=== PATIENT | female | born 1935 | race Caucasian/White ===

== ENCOUNTER 2018-03-15 00:37 | Outpatient (CLI) | payer MEDICARE, SELFPAY ==
--- NOTE | 2018-03-15 10:26 | DI.MAMMO_ITS ---
SYMPTOM/DIAGNOSIS: SCREENING, [facility] MAMMOGRAMS: Mammograms were interpreted according to the usual protocol including computer analysis with CAD system, tomosynthesis and C view imaging. Comparison with prior examinations. No masses or microcalcifications are seen. There is nothing to suggest malignancy. Breast density B. IMPRESSION: Category 1-B. Negative mammogram. Routine screening is recommended. [facility] ASSESSMENT OF FINDINGS: Negative. Category 1. Patient will receive a letter notifying them of these results. BI-RADS category B. There are scattered areas of fibroglandular density.
--- NOTE | 2018-03-15 10:50 | DI.RAD_ITS ---
SYMPTOM/DIAGNOSIS: RT SHOULDER PAIN, M25.511 RIGHT SHOULDER, multiple views; There are moderate hypertrophic changes seen at the acromioclavicular joint. There are mild degenerative changes seen at the glenohumeral joint. There is superior subluxation of the humeral head raising the question of chronic rotator cuff tear. The bones appear intact and mildly osteopenic. The soft tissues are unremarkable. IMPRESSION: Moderate degenerative changes of the right shoulder as described above. Superior subluxation of the humeral head raising the question of chronic rotator cuff tear.
== END 2018-03-15 00:57 ==
PROVIDERS: PCP Family Medicine; Visit Provider Family Medicine
DX: Z12.31 Encounter for screening mammogram for malignant neoplasm of breast (principal); M25.511 Pain in right shoulder; M19.011 Primary osteoarthritis, right shoulder
CPT/HCPCS: 77063; 77067; 73030

== ENCOUNTER 2019-02-15 14:35 | Outpatient (REF) | payer MEDICARE, SELFPAY ==
[2019-02-15 21:14] LABS: Anion Gap 8.5 mmol/L (3-11); BUN 23 mg/dL (7-18); CO2 29.5 mmol/L (21.0-32.0); CREATININE 0.82 mg/dL (0.55-1.02); Calcium 8.8 mg/dL (8.5-10.1); Chloride 104 mmol/L (98-107); Glucose 108 mg/dL (70-100); Potassium 4.3 mmol/L (3.5-5.1); Sodium 142 mmol/L (136-145)
== END 2019-02-15 14:55 ==
LOC: NCHCN 14:35
PROVIDERS: PCP Family Medicine; Visit Provider Family Medicine
DX: I83.90 Asymptomatic varicose veins of unspecified lower extremity (principal)
CPT/HCPCS: 80048

== ENCOUNTER 2019-04-21 00:34 | Outpatient (CLI) | payer MEDICARE, SELFPAY ==
--- NOTE | 2019-04-21 13:10 | DI.MAMMO_ITS ---
EXAM: MG MAMMO SCREENING CLINICAL HISTORY: SCREENING , [facility] Z00.00. TECHNIQUE: Full field digital CC and MLO mammographic images were obtained with 3D tomosynthesis and utilizing computer aided detection (CAD). COMPARISON: 2009 to 2017 FINDINGS: Breast Density - Category B - Scattered areas of fibroglandular density Masses/Architectural Distortion: None seen. Microcalcifications: No suspicious pleomorphic-type calcifications are seen. Skin Thickening/Nipple Retraction: None. Axilla: Unremarkable. IMPRESSION: 1. BI-RADS category 1, negative. No significant interval change with no specific features of maligna ncy noted. 2. Unless there is more urgent need, screening mammography is recommended, as per [place] [employer] guidelines. A negative radiographic report should not delay biopsy if a dominant or clinically suspicious mass is present. Up to ten percent of cancers are not identified on mammography. A negative report may reinforce clinical impression. Adenosis and dense breasts may obscure an underlying neoplasm. False positive reports average 6 to 10%. Patient will receive a letter notifying them of these results.
--- NOTE | 2019-04-21 13:49 | DI.DEXA_ITS ---
EXAM: XR DEXA BONE DENSITY W/WO RODRIGO INDICATION: POSTMENOPAUSAL Z78.0. COMPARISON: DEXA BONE DENSITY WITH RODRIGO from 12/09/2010 FINDINGS: The RODRIGO image shows no evidence of compression fractures. Bone mineral density measurements of the l umbar spine correspond to a total T-score of -0.4. L3 and L4 were excluded from the measurements due to prominent endplate osteophytes and sclerosis. This corresponds with increase in bone density of 4. 5 percent when compared with 2011. The bone mineral density measurements of the left hip correspond to a total T-score of -1.5 and femor al neck T-score of -1.9, in the osteopenic range. This represents a 7.2 percent decrease in bone dens ity when compared with 2011. Left forearm bone mineral density measurements correspond to a T-score o f the distal 3rd of -2.2, in the osteopenic range. This is a 10.5 percent decrease when compared with the previous exam. IMPRESSION: Osteopenia of left forearm and left hip with decreased bone density when compared with 2011. Normal b one mineral density of the lumbar spine with increased density when compared with the previous exam.
== END 2019-04-21 00:54 ==
PROVIDERS: PCP Family Medicine; Visit Provider Family Medicine
DX: M85.88 Other specified disorders of bone density and structure, other site (principal); Z78.0 Asymptomatic menopausal state; Z12.31 Encounter for screening mammogram for malignant neoplasm of breast
CPT/HCPCS: 77063; 77067; 77080

== ENCOUNTER 2019-07-03 09:57 | Emergency (ER) | payer MEDICARE, SELFPAY ==
[2019-07-03 09:59] VITALS: BP 204/85; PULSE 82; TEMP 37.2; O2SAT 99
--- NOTE | 2019-07-03 10:15 | DI.RAD_ITS ---
EXAM: XR CHEST 2V PA LATERAL CLINICAL HISTORY: chest burning TECHNIQUE: COMPARISON: XR shoulder RT complete 2+V from 03/15/2018 FINDINGS: The heart is not enlarged. The lungs are clear, probably mildly hyper expanded. No pleural effusion seen no evidence of pneumothorax. IMPRESSION: No evidence of acute intrapulmonary process.
--- NOTE | 2019-07-03 10:15 | DI.RAD_ITS ---
EXAM: XR KNEE RT 4V AP,LAT,JOE,PAT CLINICAL HISTORY: lateral pain TECHNIQUE: COMPARISON: No exams were available for comparison FINDINGS: Five views were obtained. There may be mild narrowing of all 3 joints of the knee cartilaginous join t space. Moderate periarticular hypertrophic spurring noted. No other abnormality seen. IMPRESSION: No evidence of acute injury.
[2019-07-03 10:24] VITALS: BP 143/89
--- NOTE | 2019-07-03 10:29 | ED.GENADUL_ITS ---
Discharge Plan Disposition Patient Disposition: HOME Condition: Stable Discharge Details Chief Complaint: GenMedical Clinical Impression: Osteoarthritis of right knee Primary Care Provider: Kierra Milton V ED Provider: Barry Carreon Home Meds and New Rx's Prescriptions: No Action furosemide 40 MG tablet 40 mg PO as directed Qty: 45 RF: 11 aspirin [Aspir-81] 81 mg Tablet,Delayed Release (Dr/Ec) RF: 0 Medical Decision Making 83-year-old female presents from home complaining of 2 things. One is right knee pain similar to that she suffered when injuring the knee in 2018. She has right lateral joint line tenderness but no motor dysfunction and no laxity of the joint. Differential diagnosis would include strain or underlying bony injury. Patient referred for x-ray. Secondarily, she states she had weeks of intermittent episodes of burning 1 arm across her chest and down the other. It occurs throughout the day, is not associated with palpitations, shortness of breath, or vomiting. Her exam is reassuring. Patient had screening x-ray, EKG, laboratory obtained. Labs reassuring. Chest x-ray without acute findings, hyperexpanded lung joseph noted. The knee radiograph reveals tricompartmental joint space narrowing consistent with degenerative changes. No other findings. Discussed with patient that we will treat her with an Yash bandage for compression, as well as follow-up in orthopedic clinic given her advanced arthritic changes. She is stable and appropriate to discharge to home at this time. Lab Data Lab results reviewed: Yes I reviewed the patient's lab results. Labs: Laboratory Results - last 24 hr 07/03/19 07/03/19 10:45 10:45 WBC 7.09 RBC 4.74 Hgb 13.9 Hct 43.0 MCV 90.7 MCH 29.3 MCHC 32.3 RDW 13.3 Plt Count 304 MPV 9.5 Immature Gran % 0.1 Neutrophils % 43.4 Lymphocytes % 49.6 Monocytes % 5.9 Eosinophils % 0.7 Basophils % 0.3 Absolute Neutrophils 3.07 Absolute Lymphocytes 3.52 H Absolute Monocytes 0.42 Absolute Eosinophils 0.05 Absolute Basophils 0.02 Sodium 140 Potassium 4.4 Chloride 107 Carbon Dioxide 28.3 Anion Gap 4.7 BUN 20 H Creatinine 0.94 Estimated GFR/1.73 m2 57.01 Glucose 114 H Calcium 8.6 Magnesium 2.1 Total Bilirubin 0.4 AST 19 ALT 21 Alkaline Phosphatase 160 H Troponin I < 0.05 Total Protein 7.3 Albumin 3.5 ECG Data Attestation: I personally reviewed and interpreted this ECG (s) as follows: Interpretation: Normal sinus rhythm, rate of 73, the QRS is narrow, there is no ST segment elevation present. QTC of 410. HPI General Mode of arrival: ambulatory . Date/Time Provider Initiated Documentation: 07/03/19 10:20 . Limitations to Documentation: no limitations . Information obtained by: patient and family . History of Present Illness 83 y ear old F presents to the emergency department with the chief complaint of 1) right knee pain, worse with a popping sensation when rotating last night, described as moderate, Quality is described as dull and constant, and is localized to the right and lower extremity. Rest improves symptom(s), Movement worsens symptoms . Patient notes other (States for week she has had intermittent burning episodes across her chest that come and go). Patient did receive the following treatments prior to arrival, none Related Data Home Medications Medication Instructions Recorded Confirmed furosemide 40 mg PO as directed #45 tab-cap 11/30/14 07/03/19 aspirin [Aspir-81] 07/03/19 Allergies Allergy/AdvReac Type Severity Reaction Status Date / Time citalopram Allergy Severe SWELLING Unverified 07/03/19 10:23 Tetracyclines Allergy Unknown HIVES Unverified 07/03/19 10:23 General Stated Complaint: GenMedical GINO: 3 Review of Systems Narrative: See HPI. No recent illness, no fall or injury, no rash. No vomiting. 8 systems reviewed and otherwise negative [facility] Surgical History (Updated 02/24/18 @ 14:34 by [employer] [place]) Appendectomy Biopsy of breast Ligation of fallopian tube Family History Mother Essential hypertension Father Personal history of malignant neoplasm Sister Essential hypertension Sister No problems noted. Sister Personal history of malignant neoplasm Social History Smoking/Tobacco Use Status: Never Drug use: Never Do you feel safe at home: Yes Do you feel safe in your relationship?: Yes Exam Narrative Exam Narrative: GEN: awake, alert, oriented 3. Pleasant, well groomed, interactive. HEAD: Normocephalic, atraumatic ENT: Mucous membranes moist, oropharynx unremarkable, External ear exam unremarkable EYES: PERRL, EOMI NECK: Full ROM, no ELIZABETH, no menigismus CHEST/RESP: Nontender, clear to auscultation bilateral, no wheeze/rhonchi/rales CARDIOVASCULAR: RRR, no murmur, rub coleman. 2+ Rad pulse bilateral ABDOMEN: Soft, nontender, no mass. +Bowel sounds EXT: Full ROM, no edema, no rash. Right lateral knee tenderness along the joint line. There is no laxity of the joint, motor is 5 out of 5 and sensation is intact throughout. Neuro: Grossly normal neurologic exam, conversant, interactive. Psych: Speech fluent, thoughts congruent, affect normal Course Vital Signs Vital signs: Vital Signs Temperature 37.2 C 07/03/19 09:59 Pulse 82 07/03/19 09:59 Blood Pressure 204/85 H 07/03/19 09:59 Pulse Oximetry 99 07/03/19 09:59 Temperature 37.2 C 07/03/19 09:59 Temperature Source Skin 07/03/19 09:59 Pulse 82 07/03/19 09:59 Respiratory Effort 07/03/19 10:05 Blood Pressure 143/89 H 07/03/19 10:24 Blood Pressure Position Sitting 07/03/19 09:59 Pulse Oximetry 99 07/03/19 09:59 Oxygen Delivery Method Room Air 07/03/19 09:59 Oxygen Flow Rate 0 07/03/19 09:59 Pain Level 10 07/03/19 09:59 Comment 07/03/19 09:59
[2019-07-03 10:57] LABS: Abs Immature Grans 0.01 k/cumm (0.0-0.09); Absolute Basophil Count 0.02 k/cumm (0.0-0.2); Absolute Eosinophil Count 0.05 k/cumm (0.0-0.7); Absolute Lymphocyte Count 3.52 k/cumm (1.2-3.4); Absolute Monocyte Count 0.42 k/cumm (0.11-0.7); Absolute Neutrophil Count 3.07 k/cumm (1.2-6.7); Basophils % 0.3; Eosinophils % 0.7; HGB 13.9 g/dL (12.0-15.5); Immature Grans % 0.1 %; Lymphocytes % 49.6; Mean Corp. HGB Concentration 32.3 g/dL (32.0-36.0); Mean Corpuscular Hemoglobin 29.3 pg (27.0-33.0); Mean Corpuscular Volume 90.7 fL (80-95); Mean Platelet Volume 9.5 fL (8.0-11.0); Monocytes % 5.9; Neutrophils % 43.4; Platelet Count 304 x1000/uL (130-400); RBC 4.74 m/cumm (4.00-5.20); RBC Distribution Width 13.3 % (11.7-14.6); White Blood Cell Count 7.09 k/cumm (4.4-10.8)
[2019-07-03 11:00] VITALS: RESP 16
[2019-07-03 11:03] LABS: ALT 21 U/L (14-59); AST 19 U/L (15-37); Albumin 3.5 g/dL (3.4-5.0); Alkaline Phosphatase 160 U/L (46-116); Anion Gap 4.7 mmol/L (3-11); BUN 20 mg/dL (7-18); Bilirubin, Total 0.4 mg/dL (0.2-1.0); CO2 28.3 mmol/L (21.0-32.0); CREATININE 0.94 mg/dL (0.55-1.02); Calcium 8.6 mg/dL (8.5-10.1); Chloride 107 mmol/L (98-107); Estimated GFR 57.01 (mL/min/1.73m2); Glucose 114 mg/dL (74-106); Magnesium 2.1 mg/dL (1.8-2.4); Potassium 4.4 mmol/L (3.5-5.1); Sodium 140 mmol/L (136-145); Total Protein 7.3 g/dL (6.4-8.2)
[2019-07-03 11:05] LABS: Troponin I < 0.05 ng/Ml (<0.06)
--- NOTE | 2019-07-03 11:31 | DI.VRAD_ITS ---
PROCEDURE INFORMATION: Exam: XR Chest, 2 Views Exam date and time: 07/03/2019 11:07 AM Age: 83 years old Clinical indication: Left-sided chest pain TECHNIQUE: Imaging protocol: XR of the chest Views: 2 views. COMPARISON: CR CHEST 2 VIEWS PA,LAT 07/06/2013 9:50 AM FINDINGS: Lungs: Hyperexpanded lung joseph consistent with COPD.. No focal consolidation Pleural space: Unremarkable. No pleural effusion. No pneumothorax. Heart/Mediastinum: Unremarkable. No cardiomegaly. Bones/joints: Degenerative changes in the glenohumeral joints IMPRESSION: Hyperexpanded lung joseph consistent with COPD Dictated and Authenticated by: Adilene Deluca MD. Ordering:ANGELITA Reddy MD
--- NOTE | 2019-07-03 11:32 | DI.VRAD_ITS ---
PROCEDURE INFORMATION: Exam: XR Left Knee Exam date and time: 07/03/2019 11:09 AM Age: 83 years old Clinical indication: Right; Patient HX: Lateral knee pain, TECHNIQUE: Imaging protocol: XR Left knee. Views: 4 or more views. COMPARISON: No relevant prior studies available. FINDINGS: Bones/joints: Tricompartmental joint space narrowing consistent with degenerative changes. Osteopenia There is no evidence of acute fracture.There is no evidence of malalignment or dislocation. Soft tissues: Normal. IMPRESSION: 1. Tricompartmental joint space narrowing consistent with degenerative changes. 2. There is no evidence of acute fracture.There is no evidence of malalignment or dislocation. Dictated and Authenticated by: Adilene Deluca MD. Ordering:ANGELITA Reddy MD
== END 2019-07-03 11:54 | disposition home or self-care (01) ==
PROVIDERS: Emergency Provider Emergency Medicine; PCP Family Medicine
DX: M17.11 Unilateral primary osteoarthritis, right knee (principal); R07.89 Other chest pain
CPT/HCPCS: 36415; 80053; 93005; 99285; 71046; 73564; 83735; 84484; 85025; 93010; 99284

== ENCOUNTER → 2019-07-13 09:58 | Outpatient (BNVA) | payer MEDICARE, SELFPAY | PROVIDERS: PCP Family Medicine; Referring Provider Family Medicine; Visit Provider Orthopaedic Surgery | DX: M17.11 Unilateral primary osteoarthritis, right knee (principal) | CPT/HCPCS: 99201; 99213 ==

== ENCOUNTER 2020-08-15 16:06 | Emergency (ER) | payer MEDICARE, SELFPAY ==
[2020-08-15 16:12] VITALS: BP 182/74; PULSE 89; RESP 16; TEMP 37.1; O2SAT 98
--- NOTE | 2020-08-15 16:15 | DI.CT_ITS ---
EXAM: CT HEAD WO CLINICAL HISTORY: fall, R forehead hematoma. TECHNIQUE: Imaging Protocol: Axial computed tomography images with coronal and sagittal reformatted images were created and reviewed COMPARISON: No exams were available for comparison FINDINGS: Ventricles and Extra axial spaces: Normal in size and morphology for the patient's age. Hemorrhage: None. Cerebral parenchyma: Normal. Midline shift: None. Brainstem/Cerebellum: Normal. Calvarium: Normal. Visualized Paranasal sinuses/Mastoids: Clear. Soft Tissues: Right frontal scalp hematoma. IMPRESSION: Right frontal scalp hematoma. No acute intracranial process. RADIATION DOSE DELIVERED: 603.96mGy.cm Total DLP DATA REPOSITORY: All CT scans at this facility are submitted to the National Radiology Data Registry (NRDR) Dose Index Registry (DIR) with the [employer] (ACR). RADIATION OPTIMIZATION: All CT scans at this facility use at least one of these dose optimization te chniques: automated exposure control; mA and/or kV adjustment per patient size (includes targeted exa ms where dose is matched to clinical indication); or iterative reconstruction.
--- NOTE | 2020-08-15 16:16 | ED.GENADUL_ITS ---
Discharge Plan Disposition Patient Disposition: HOME Condition: Stable Discharge Details Clinical Impression: Head injury Primary Care Provider: Kierra Milton V ED Provider: Andrzej Jensen Home Meds and New Rx's Prescriptions: Continued furosemide 40 MG tablet 40 mg PO as directed Qty: 45 RF: 11 aspirin [Aspir-81] 81 mg Tablet,Delayed Release (Dr/Ec) 81 mg PO DAILY RF: 0 Discharge Instructions Instructions: Head Injury (ED) Additional Instructions: CT imaging of your head does not show any obvious intracranial hemorrhage. No fracture noted as well. Cool compresses as tolerated. Please watch for new or worsening symptoms and return to the ER for any concerns. I do recommend reaching out your primary care provider tomorrow to discuss outpatient reevaluation in the next few days. Medical Decision Making 84-year-old female presents for mechanical fall striking her right forehead. This happened approximately 45 minutes ago while in the parking lot of her ambulatory services representative, tripping on a trailer hitch. Denies LOC, any other injuries, headache, visual change, neck pain, symptoms prior to the fall. She was evaluated given the size of her hematoma sent to the ER for further evaluation. Clinically she appears well, nontoxic. Will obtain CT imaging of her head to ru le out intracranial process and/or fracture. Given her overall presentation, low suspicion. She appears well, nontoxic, neurologically intact. She is comfortable with this plan. I do not believe that laboratory values are indicated. Patient is not anticoagulated. CT imaging of head read by radiology as right frontal scalp hematoma. No radiopaque foreign body, no acute fracture. No evidence for acute transcortical infarct, acute intracranial hemorrhage, or mass-effect. Patient remains neurologically intact while under my care. Discussed her CT findings. Patient has no additional questions or concerns and is comfortable discharge at this time. Standard return precautions given, patient will otherwise contact her primary care provider tomorrow. Medical Records Medical records reviewed: Yes I reviewed the patient's medical records. HPI General Mode of arrival: ambulatory . Date/Time Provider Initiated Documentation: 08/15/20 16:15 . Limitations to Documentation: no limitations . Information obtained by: patient . HPI Narrative: This is an 84-year-old female who denies any significant past medical history, denies anticoagulation, presenting to the ER for evaluation of a head injury status post fall approximately 45 minutes ago. She states that she was in the parking lot of her ambulatory services representative, was asymptomatic, and tripped over a trailer hitch. She fell forward striking the right side of her head. She denies any loss of consciousness, headache, pain at the hematoma, visual changes, neck pain, chest pain, shortness of breath abdominal pain, incontinence, numbness, tingling, weakness, pain in her extremities. Patient states that she was evaluated at the ambulatory services representative, EMS contacted, and given the size of the hematoma on her forehead she was directed to the ER for CT imaging. Patient has no other injuries. She has no additional questions or concerns. Related Data Home Medications Medication Instructions Recorded Confirmed furosemide 40 mg PO as directed #45 tab-cap 11/30/14 08/15/20 aspirin [Aspir-81] 81 mg PO DAILY 07/03/19 08/15/20 Allergies Allergy/AdvReac Type Severity Reaction Status Date / Time citalopram Allergy Severe SWELLING Unverified 08/15/20 16:14 Tetracyclines Allergy Unknown HIVES Unverified 08/15/20 16:14 General Stated Complaint: HeadInjury GINO: 3 Review of Systems Constitutional Constitutional: Denies headache(s) and Denies weakness Eyes Eyes: Denies change in vision ENT Ears, Nose, Mouth, and Throat: Denies headache(s) and Denies neck pain Cardiovascular Cardiovascular: Denies chest pain and Denies dyspnea Respiratory Respiratory: Denies dyspnea Gastrointestinal Gastrointestinal: Denies abdominal pain, Denies nausea and Denies vomiting Musculoskeletal Musculoskeletal: Denies arthralgias, Denies neck pain, Denies numbness, Denies stiffness and Denies tingling Integumentary/Breasts Skin/Breast: Denies rash Neurologic Neurologic: Denies headache(s), Denies numbness, Denies tingling and Denies weakness Hematologic/Lymphatic Hematologic/Lymphatic: Denies easy bleeding and Denies easy bruising [facility] Surgical History Appendectomy Biopsy of breast Ligation of fallopian tube Family History Mother Essential hypertension Father Personal history of malignant neoplasm Sister Essential hypertension Sister No problems noted. Sister Personal history of malignant neoplasm Social History Smoking/Tobacco Use Status: Never Smoking risk assessment performed?: Yes Alcohol Intake: current Alcohol Intake frequency: holidays/special occasions only Drug use: Never Substance use type: does not use Current gender identity: female Do you feel safe at home: Yes Do you feel safe in your relationship?: Yes Exam Const General: cooperative, healthy appearing, comfortable and no acute distress Orientation: alert, awake and oriented x3 HENMT Head: no palpable skull fracture and normocephalic Head images: 1. Hematoma. Minimal discomfort to palpation Ears: external ears normal, TM's normal bilaterally and EAC's normal General nose exam: external nose normal Mouth: moist mucous membranes Throat: posterior oropharynx normal Eyes General: appearance normal, both eyes and all related structures Periorbital: periorbital findings normal Eyelids: eyelids normal Conjunctivae: conjunctivae normal Sclera: sclerae normal Cornea: corneas normal Pupils: PERRL EOM: EOM intact bilaterally Direct ophthalmoscopy: normal light reflex Neck Neck: normal visual inspection, full ROM, trachea midline, supple and nontender Resp Effort & Inspection: normal respiratory effort and able to speak in complete sentences Auscultation: clear to auscultation bilaterally Cardio Rate: regular rate Rhythm: regular rhythm Back/Spine/Pelvis Back: No back tenderness Skin General skin exam: no rashes or lesions noted Neuro General: patient alert, patient awake, patient oriented x3, moves all extremities and no focal motor deficits Cranial Nerves: CN's II-XI intact bilaterally Cognition: normal cognition Speech: speech normal Gait: normal gait Motor: muscle tone normal throughout, no pronator drift, no movement abnormaliti es noted and no fasciculations Sensory Exam: no sensory deficits noted Coordination: [id number] test normal and Does not sway with eyes open Extrem General: normal to inspection and full ROM Psych Appearance: grossly normal Mental Status: mental status grossly normal Course Vital Signs Vital signs: Vital Signs Temperature 37.1 C 08/15/20 16:12 Pulse 89 08/15/20 16:12 Respiratory Rate 16 08/15/20 16:12 Blood Pressure 182/74 H 08/15/20 16:12 Pulse Oximetry 98 08/15/20 16:12 Temperature 37.1 C 08/15/20 16:12 Temperature Source Temporal Artery Scan 08/15/20 16:12 Pulse 89 08/15/20 16:12 Respiratory Rate 16 08/15/20 16:12 Blood Pressure 182/74 H 08/15/20 16:12 Blood Pressure Position Sitting 08/15/20 16:12 Pulse Oximetry 98 08/15/20 16:12 Oxygen Delivery Method Room Air 08/15/20 16:12 Oxygen Flow Rate 0 08/15/20 16:12 Pain Level 0 08/15/20 16:12
--- NOTE | 2020-08-15 17:31 | DI.VRAD_ITS ---
PROCEDURE INFORMATION: Exam: CT Head Without Contrast Exam date and time: 08/15/2020 4:23 PM Age: 84 years old Clinical indication: Fall, R forehead hematoma TECHNIQUE: Imaging protocol: Computed tomography of the head without contrast. Radiation optimization: All CT scans at this facility use at least one of these dose optimization techniques: automated exposure control; mA and/or kV adjustment per patient size (includes targeted exams where dose is matched to clinical indication); or iterative reconstruction. COMPARISON: No relevant prior studies available. FINDINGS: Brain: Age-related involutional changes and chronic microvascular ischemic disease. No evidence for acute transcortical infarct. No mass effect or midline shift. No extra-axial collection. No acute intracranial hemorrhage. Basal cisterns are patent. Cerebral ventricles: No ventriculomegaly. Bones/joints: No acute calvarial fracture. Paranasal sinuses: Visualized sinuses are unremarkable. No fluid levels. Mastoid air cells: Visualized mastoid air cells are well aerated. Orbital cavity: Bilateral cataract surgery. Soft tissues: Right frontal scalp hematoma. No radiopaque foreign body. IMPRESSION: 1. Right frontal scalp hematoma. No radiopaque foreign body. No acute calvarial fracture. 2. No evidence for acute transcortical infarct, acute intracranial hemorrhage, or mass effect. Dictated and Authenticated by: Anthony Daly MD. Ordering:JERARDO Donnelly MD
[2020-08-15 18:06] VITALS: BP 182/74; PULSE 89; RESP 16; TEMP 37.1; O2SAT 98
== END 2020-08-15 17:57 | disposition home or self-care (01) ==
PROVIDERS: Emergency Provider Physician Assistant; PCP Family Medicine
DX: S00.81XA Abrasion of other part of head, initial encounter (principal); W19.XXXA Unspecified fall, initial encounter
CPT/HCPCS: 99284; 70450

== ENCOUNTER 2021-02-22 16:35 | Outpatient (REF) | payer MEDICARE, SELFPAY ==
[2021-02-22 20:02] LABS: Anion Gap 5.6 mmol/L (3-11); BUN 25 mg/dL (7-18); CO2 29.4 mmol/L (21.0-32.0); CREATININE 1.1 mg/dL (0.55-1.02); Calcium 8.8 mg/dL (8.5-10.1); Chloride 102 mmol/L (98-107); Estimated GFR 47.32 (mL/min/1.73m2); Glucose 116 mg/dL (74-106); Potassium 4.3 mmol/L (3.5-5.1); Sodium 137 mmol/L (136-145)
== END 2021-02-22 16:36 | disposition home or self-care (01) ==
LOC: NCHCN 16:35
PROVIDERS: PCP Family Medicine; Visit Provider Family Medicine
DX: R60.0 Localized edema (principal); Z00.00 Encounter for general adult medical examination without abnormal findings
CPT/HCPCS: 80048

== ENCOUNTER 2021-03-21 01:22 | Outpatient (CLI) | payer MEDICARE, SELFPAY ==
--- NOTE | 2021-03-21 12:00 | DI.MAMMO_ITS ---
Exam(s) MAMMO SCREENING EXAM: MAMMO SCREENING CLINICAL HISTORY: [facility] Z00.00, SCREENING FOR BREAST CANCER TECHNIQUE: Mammograms were interpreted according to the usual protocol including computer analysis w [employer] CAD system, tomosynthesis and C-view imaging. COMPARISON: 2011 through 2018 FINDINGS: The breasts are composed of scattered fibroglandular densities, Breast Density category B. No suspicious masses or suspicious microcalcifications are seen. Stable scattered benign-appearing c alcifications and vascular calcifications. No skin thickening or abnormal axillary lymph nodes are seen. There has been no significant change from prior exams. IMPRESSION: BI-RADS Cat 2 - Benign Findings Yearly screening mammography is recommended. Breast Density - Category B, scattered fibroglandular densities. A negative radiographic report should not delay biopsy if a dominant or clinically suspicious mass is present. Up to ten percent of cancers are not identified on mammography. A negative report may reinforce clinical impression. Adenosis and dense breasts may obscure an underlying neoplasm. False positive reports average 6 to 10%. Patient will receive a letter notifying them of these results.
== END 2021-03-21 01:42 ==
PROVIDERS: PCP Family Medicine; Visit Provider Family Medicine
DX: Z12.31 Encounter for screening mammogram for malignant neoplasm of breast (principal)
CPT/HCPCS: 77063; 77067

== ENCOUNTER → 2022-04-04 00:37 | Outpatient (CLI) | payer MEDICARE, SELFPAY ==
--- NOTE | 2022-04-04 | DI.MAMMO_ITS ---
Exam(s) MAMMO SCREENING EXAM: MAMMO SCREENING CLINICAL HISTORY: SCREENING, Z12.31 TECHNIQUE: Mammograms were interpreted according to the usual protocol including computer analysis w [employer] CAD system, tomosynthesis and C-view imaging. COMPARISON: FINDINGS: The breasts are of moderate density with fairly symmetrical distribution of fibroglandular tissue. N o dominant mass or suspicious clumped microcalcification is identified in either breast. The current examination is compared with previous examinations including March 2021 and there has been no ashtyn ss interval change in appearance in comparison with the prior studies. IMPRESSION: No specific evidence of malignancy at this time. Routine screening examinations are suggested at yea rly intervals in this age group according to the ACS ACR guidelines. BI-RADS Category 1 - Negative Breast Density - Category B - Scattered areas of fibroglandular density
--- OUTSIDE RECORDS SUMMARY | 2022-04-04 00:45 | XMS_ITS | Encounter Summary ---
:1935 Author Organization [facility] Address [address] [place] [address] Care Team Providers Name Role Phone Unavailable Primary Care Provider Unavailable Encounter Details Date Type Department Care Team Description 12/09/2012 Results Only [facility] Dell Corley MD Laboratory Services - [id number] [place] [address] [place] [address] [phone] Social History Tobacco Use Types Packs/Day Years Used Date Smoking Tobacco: Never Assessed Sex Assigned at Date Recorded Not on file documented as of this encounter Plan of Treatment Not on filedocumented as of this encounter Procedures Procedure Name Priority Date/Time Associated Diagnosis Comme [facility] SURGICAL PATHOLOGY Routine 12/09/2012 8:53 EDT Re sults for this procedure are i n the results section. documented in this encounter Results SURGICAL PATHOLOGY (12/09/2012 8:53 EDT) Component Value Ref Test Analysis Performed At [facility] Method Time Signature Pathology SURGICAL PATHOLOGY REPORT JOHN HARTMAN Report: Reports generated via electronic interface contain ellen l data; RENE MCCOY however they are lacking the format of the original report. Caution should be taken when reading/interpreting unformatte d reports. Name: ? CRAIG VO ? Accession #: ? [id number] ? : ? 1935 (Age: 77) ??F ? Collect Date: ? 12/09/2012 ? Location: ? [facility] ? Receive Date: ? 12/10/2012 ? Provider: ANGEL CORLEY MD Copy to: LAURI SHEN MD ? Final Pathologic Diagnosis: SKIN OF ABDOMEN, RIGHT MID WALL AT NIPPLE LINE, EXCISION: - Seborrheic keratosis. Document reviewed and electronically signed by: JENIFER ADAIR MD Report ??Date: 12/13/2012 12:49 By the signature above, the attending physician certifies th at he/she has personally conducted a gross and/or microscopic examin ation of the described specimens and rendered or confirmed the above diagnosis. Specimen(s) Received: Rt mid abd wall nipple line Clinical History: Present several yrs, catches on clothing Gross Description: ? Received in formalin labelled with proper patient identification (initials P., B) and right mid abdomi nal wall at nipple line is an unoriented elliptical excision of preston-brown skin (1.5 x 1.2 cm and is excised to a depth of 0.7 cm). There is a preston-brown papule that measures 1.2 x 1.0 x 0.4 cm. The margins are inked black. The specimen is serially sectioned and entirely submitted as block 1 central sections and block 2 tips, reverse en face. Dr. Posadas 12/10/2012 02:36 PM End of Report Specimen Anatomical Collection Method Collection Time Receive d Time (Source) Location / / Volume Laterality 12/09/2012 8:53 12/10/2012 8 :53 EDT EDT Angel Corley MD PATHOLOGY ORDERABLES Performing Organization Address City/State/ZIP Code Phon e Number [facility] [address] [place] [address] SERVICES [facility] [address] [place] [address] documented in this encounter Visit Diagnoses Not on filedocumented in this encounter
--- OUTSIDE RECORDS SUMMARY | 2022-04-04 00:45 | XMS_ITS | Encounter Summary ---
:1935 Author Organization [facility] Address [address] [place] [address] Care Team Providers Name Role Phone Unavailable Primary Care Provider Unavailable Encounter Details Date Type Department Care Team Description 11/19/1999 Results Only [facility] - Bryant Asher MD conversion [address] [place] [address] Social History Tobacco Use Types Packs/Day Years Used Date Smoking Tobacco: Never Assessed Sex Assigned at Date Recorded Not on file documented as of this encounter Plan of Treatment Not on filedocumented as of this encounter Procedures Procedure Name Priority Date/Time Associated Diagnosis Comme [facility] SURGICAL PATHOLOGY Routine 11/19/1999 0:00 EDT Re sults for this procedure are i n the results section. documented in this encounter Results SURGICAL PATHOLOGY (11/19/1999 0:00 EDT) Component Value Ref Test Analysis Performed At [facility] Method Time Signature Pathology SURGICAL PATHOLOGY REPORT JOHN HARTMAN Report: Reports generated via electronic interface contain origina l data; RENE MCCOY however they are lacking the format of the original report. Caution should be taken when reading/interpreting unformatte d reports. Name: ? CRAIG VO ? Accession #: ? [id number] ? : ? 1935 (Age: 64) ??F ? Collect Date: ? 11/19/1999 ? Location: ? [facility] ? Receive Date: ? 11/20/1999 ? Provider: BRYANT DIANA MD Copy to: CHANDAN CONWAY MD ? Final Pathologic Diagnosis: A. ?Endometrium, polyp, polypectomy: 1. ?Benign endometrial polyp. B. ?Endometrium, curettage: 1. ?Scant degen erated and cauterized fragments of endometrial tissue. ? (Luc Mobley M.D.) Document reviewed and electronically signed by: Nicole Dutton MD Report ??Date: 11/22/1999 22:25 By the signature above, the attending physician certifies th at he/she has personally conducted a gross and/or microscopic examin ation of the described specimens and rendered or confirmed the above diagnosis. Specimen(s) Received: A. ?Endometrial polyp (#1) B. ?Endometrial curettings at 10 o' clock (#2) Clinical History: ? Post menopausal bleeding on hormone therapy Gross Description: ? Received in formalin labelled Pa tridge are multiple preston-red hyperemic rubbery soft tissue fragment s aggregating 1.5 x 1.0 x 0.3 cm. ??The specimen is entirely submitted as (A). Received in formalin marquez d Patridge and #2 endometrial curettings is 0.7 x 0.5 x 0.2 cm of multiple preston-red soft tissue fragments. ??The specimen is entirely submitted as (B). ??(Tigist Canas)/yeni End of Report Specimen (Source) Anatomical Collection Method Collection Time Re ceived Time Location / / Volume Laterality 11/19/1999 11/20/1999 7:58 EDT Bryant Diana MD PATHOLOGY ORDERABLES Performing Organization Address City/State/ZIP Code Phon e Number [facility] [address] [place] [address] SERVICES [facility] [address] [place] [address] documented in this encounter Visit Diagnoses Not on filedocumented in this encounter
--- OUTSIDE RECORDS SUMMARY | 2022-04-04 00:45 | XMS_ITS | Encounter Summary ---
:1935 Author Organization [facility] Address [address] [place] [address] Care Team Providers Name Role Phone Unavailable Primary Care Provider Unavailable Encounter Details Date Type Department Care Team Description 07/28/2002 Results Only [facility] - Any Zhou NP conversion [address] [place] [address] Social History Tobacco Use Types Packs/Day Years Used Date Smoking Tobacco: Never Assessed Sex Assigned at Date Recorded Not on file documented as of this encounter Plan of Treatment Not on filedocumented as of this encounter Procedures Procedure Name Priority Date/Time Associated Diagnosis Comme nts CYTOPATHOLOGY Routine 07/28/2002 0:00 EST Results for this procedure are i n the results section . documented in this encounter Results CYTOPATHOLOGY (07/28/2002 0:00 EST) Component Value Ref Test Analysis Performed At [facility] Method Time Signature Pathology CYTOPATHOLOGY REPORT RELA Report: [facility] Reports generated via electronic interface contain original data; however they are lacking the format of the original report. Caution should be taken when reading/interpreting unformatte d reports. Name: ? ODILIA VO ? Accession #: ? [id number] : ? 1935 (Age: 66) ??F ?Collect Date: ? 07/28/2002 Location: ? [facility] ? Receive Date: ? 07/29/2002 Provider: ?ANY MCGHEE DIE CUT OPERATOR Copy to: ? Specimen/Source: ?ThinPrep Pap Test, Cervix/Endoce rvix Last Menstrual Period: ? 1989 Hormonal/Contraceptive Status: ? Hormone Replacement Therapy Previous Gynecologic Pathology: ? Benign cellular changes: ? SPECIMEN ADEQUACY ? Satisfactory for Evaluation - transformation zone component present GENERAL CATEGORIZATION ? Negative for Intraepithelial Lesion or Malignancy INTERPRETATION ? Fungal organisms pres ent morphologically consistent with Renee species. ? Document reviewed and electronically signed by: ? LAY Earl(ASCP) ? Report Date: ??08/02/2002 10:18 End of Report Specimen (Source) Anatomical Location Collection Method / Collectio n Time Received Time / Laterality Volume 07/28/2002 07/29/2002 Any Mcghee NP PATHOLOGY ORDERABLES Performing Organization Address City/State/ZIP Code Phon e Number [facility] [address] [place] [address] SERVICES [facility] [address] [place] [address] documented in this encounter Visit Diagnoses Not on filedocumented in this encounter
--- OUTSIDE RECORDS SUMMARY | 2022-04-04 00:45 | XMS_ITS | Encounter Summary ---
:1935 Author Organization [facility] Address [address] [place] [address] Care Team Providers Name Role Phone Unavailable Primary Care Provider Unavailable Encounter Details Date Type Department Care Team Description 07/26/2001 Results Only [facility] - Any Zhou NP conversion [address] [place] [address] Social History Tobacco Use Types Packs/Day Years Used Date Smoking Tobacco: Never Assessed Sex Assigned at Date Recorded Not on file documented as of this encounter Plan of Treatment Not on filedocumented as of this encounter Procedures Procedure Name Priority Date/Time Associated Diagnosis Comme nts CYTOPATHOLOGY Routine 07/26/2001 0:00 EST Results for this procedure are i n the results section . documented in this encounter Results CYTOPATHOLOGY (07/26/2001 0:00 EST) Component Value Ref Test Analysis Performed At [facility] Method Time Signature Pathology CYTOPATHOLOGY REPORT REAL Report: [facility] Reports generated via electronic interface contain original data; however they are lacking the format of the original report. Caution should be taken when reading/interpreting unformatte d reports. Name: ? ODILIA VO ? Accession #: ? [id number] : ? 1935 (Age: 65) ??F ?Collect Date: ? 07/26/2001 Location: ? [facility] ? Receive Date: ? 07/28/2001 Provider: ?ANY MCGHEE DREDGEMASTER Copy to: ? Specimen/Source: ?ThinPrep Pap Test, Cervix/Endoce rvix Last Menstrual Period: ? 1989 Hormonal/Contraceptive Status: ? Hormone Replacement Therapy Previous Gynecologic Pathology: ? Benign cellular changes: Other: ? Additional clinical information: Spotted 1 day in 2000 ? SPECIMEN ADEQUACY ? Satisfactory for Evaluation - transformation zone component present GENERAL CATEGORIZATION ? Negative for Intraepithelial Lesion or Malignancy ? Document reviewed and electronically signed by: ? Cristal Baron, ??SCT(ASCP) ? Report Date: ??07/30/2001 13:13 End of Report Specimen (Source) Anatomical Location Collection Method / Collectio n Time Received Time / Laterality Volume 07/26/2001 07/28/2001 Any Mcghee NP PATHOLOGY ORDERABLES Performing Organization Address City/State/ZIP Code Phon e Number [facility] [address] [place] [address] SERVICES [facility] [address] [place] [address] documented in this encounter Visit Diagnoses Not on filedocumented in this encounter
--- OUTSIDE RECORDS SUMMARY | 2022-04-04 00:45 | XMS_ITS | Encounter Summary ---
:[address] [facility] Address [address] [place] [address] Care Team Providers Name Role Phone Unavailable Primary Care Provider Unavailable Encounter Details Date Type Department Care Team Description 07/18/1999 Results Only [facility] - Any Zhou NP conversion [address] [place] [address] Social History Tobacco Use Types Packs/Day Years Used Date Smoking Tobacco: Never Assessed Sex Assigned at Date Recorded Not on file documented as of this encounter Plan of Treatment Not on filedocumented as of this encounter Procedures Procedure Name Priority Date/Time Associated Diagnosis Comme [facility] CYTOPATHOLOGY Routine 07/18/1999 8:13 EST Results for this procedure are i n the results section . documented in this encounter Results CYTOPATHOLOGY (07/18/1999 8:13 EST) Component Value Ref Test Analysis Performed At [facility] Method Time Signature Pathology CYTOPATHOLOGY REPORT REAL Report: [facility] Reports generated via electronic interface contain original data; however they are lacking the format of the original report. Caution should be taken when reading/interpreting unformatte d reports. Name: ? ODILIA VO ? Accession #: ? [id number] : ? 1935 (Age: 63) ??F ?Collect Date: ? 07/18/1999 Location: ?Receive Date: ? 0 07/18/1999 Provider: ?ANY MCGHEE NP Copy to: ?ANY MCGHEE NP ? Specimen/Source: ?Top Spotter ThinPrep Last Menstrual Period: ? GYNECOLOGIC ??CYTOPATHOLOGY ??RE PORT Name: PARTFOREIGN,ODILIA ?[facility] MR N: [id number] : 1935 ?? 63Y F ?Client ID: [id number] SS#: [id number] ? Accessio n #: [id number] Clinician: PREMA MCGHEE NP ?? Location: [facility] ??Copy to: ?? Specimen: ?Top Spotter ThinPrep ? Source: Cervix/Endocervix ?Collected: 07/17/99 ? Received: 07/18/1999 ?LMP: 1990 ? Hormone Therapy: No ? : No ? Radiation Therapy: No ?? Post : No ?Chemotherapy: No ?IUD: No ? Prev Abnormal Pap: No ?? Clinical Hx: Benign Cellular Changes. 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 ?(Blank joseph indicate information not provided on req uisition) SPECIMEN ADEQUACY: ? Satisfactory For Evaluation ?? GENERAL CATEGORIZATION: ? WITHIN NORMAL LIMITS ? Reviewed And Electronically Signed By: ? Eddie Maria Jr ., CT(ASCP) ? Cristine Almanza, SCT (ASCP) ? Report Date: ?? 0 07/18/1999 dotloop Archived Tests - Final Diagnosis Text Field: Clinical History : ;Benign C ellular Changes. Atrophy with inflammation (atrophic vaginitis). ? Document reviewed and electronically signed by: ? Conversion ? Report Date: ??07/18/1999 00:00 End of Report Specimen Anatomical Collection Method Collection Time Receive d Time (Source) Location / / Volume Laterality 07/18/1999 8:13 07/18/1999 8 :14 EST EST Any Mcghee [employer] EXAMINER PATHOLOGY ORDERABLES Performing Organization Address City/State/ZIP Code Phon e Number [facility] [address] [place] [address] SERVICES [facility] [address] [place] [address] documented in this encounter Visit Diagnoses Not on filedocumented in this encounter
--- OUTSIDE RECORDS SUMMARY | 2022-04-04 00:45 | XMS_ITS | Encounter Summary ---
:1935 Author Organization [facility] Address [address] [place] [address] Care Team Providers Name Role Phone Unavailable Primary Care Provider Unavailable Encounter Details Date Type Department Care Team Description 09/06/[address] [facility] - Bryant Asher MD conversion [address] [place] [address] Social History Tobacco Use Types Packs/Day Years Used Date Smoking Tobacco: Never Assessed Sex Assigned at Date Recorded Not on file documented as of this encounter Plan of Treatment Not on filedocumented as of this encounter Procedures Procedure Name Priority Date/Time Associated Diagnosis Comme [facility] SURGICAL PATHOLOGY Routine 09/06/1999 9:27 EDT Re sults for this procedure are i n the results section. documented in this encounter Results SURGICAL PATHOLOGY (09/06/1999 9:27 EDT) Component Value Ref Test Analysis Performed At [facility] Method Time Signature Pathology SURGICAL PATHOLOGY REPORT JOHN HARTMAN Report: Reports generated via electronic interface contain origina l data; [facility] however they are lacking the format of the original report. Caution should be taken when reading/interpreting unformatte d reports. Name: ? CRAIG VO ? Accession #: ? [id number] ? : ? 1935 (Age: 63) ??F ? Collect Date: ? 09/06/1999 ? Location: ?Receive Date: ? 09/06/1999 ? Provider: BRYANT WILD MD Copy to: BRYANT CONWAY MD ? Final Pathologic Diagnosis: MICROSCOPIC DIAGNOSIS: ? Endometrium, biopsy: ? - Benign polyp of lower uterine segment/endocervical origin. ? - Strips of inactive endometrial surface epithelium. ? - Benign endocervical tissue. Document reviewed and electronically signed by: Conversion for CRISTINE CULP Report ??Date: 09/09/1999 00:00 By the signature above, the attending physician certifies th at he/she has personally conducted a gross and/or microscopic examin ation of the described specimens and rendered or confirmed the above diagnosis. Specimen(s) Received: TISSUE SUBMITTED: ? Endometrial biopsy CLINICAL DATA: ? Post menopausal bleeding Gross Description: GROSS: ? Received in formalin labelled Garita and endome trium is ? 0.25 cc of preston-brown mucinous material. ??The specime n is entirely ? submitted in one cassette. ??(Tigist Calvin/yeni End of Report Specimen Anatomical Collection Method Collection Time Receive d Time (Source) Location / / Volume Laterality 09/06/1999 9:27 09/06/1999 9 :28 EDT EDT Bryant Wild MD PATHOLOGY ORDERABLES Performing Organization Address City/State/ZIP Code Phon e Number [facility] [address] [place] [address] SERVICES [facility] [address] [place] [address] documented in this encounter Visit Diagnoses Not on filedocumented in this encounter
== END ==
PROVIDERS: PCP Family Medicine; Visit Provider Family Medicine
DX: Z12.31 Encounter for screening mammogram for malignant neoplasm of breast (principal)
CPT/HCPCS: 77063; 77067

== ENCOUNTER 2022-07-29 13:14 | Outpatient (CLI) | payer MEDICARE, SELFPAY ==
--- NOTE | 2022-07-29 | DI.RAD_ITS ---
Exam(s) XR CHEST 2V PA LATERAL STERNOCLAVICULAR JOINT/S XR CLAVICLE RT EXAM: XR CHEST 2V PA LATERAL and XR clavicle RT and sternoclavicular joints CLINICAL HISTORY: CHEST WALL PAIN R07.89 CLAVICLE DEFORMITY M95.8 TECHNIQUE: 2D digital imaging was performed of the chest. Seven images were obtained. PA and later al views were obtained. COMPARISON: CR,XR XR CHEST 2V PA LATERAL from 07/03/2019 FINDINGS: MEDIASTINUM: Normal. HEART: Normal. PULMONARY VASCULATURE: Normal. LUNGS: Clear. PLEURAL SPACE: No pleural effusion or pneumothorax. BONE:Within normal limits for the patient's age. There are moderate degenerative changes seen at the acromioclavicular joint. The sternoclavicular joints appears symmetric with mild degenerative carrasco es present. OTHER FINDINGS:Normal. IMPRESSION: 1. No acute pulmonary findings. 2. Degenerative changes of the right acromioclavicular joint. 3. Unremarkable sternoclavicular joints. If there is continued concern, a CT scan may be obtained fo r further evaluation. DATA REPOSITORY: RADIATION DOSE DELIVERED:
== END 2022-07-29 13:34 ==
LOC: DI 13:15
PROVIDERS: PCP Family Medicine; Visit Provider Family Medicine
DX: R07.89 Other chest pain (principal); M95.8 Other specified acquired deformities of musculoskeletal system; M19.011 Primary osteoarthritis, right shoulder
CPT/HCPCS: 71046; 71130; 73000

== ENCOUNTER 2023-03-03 16:03 | Outpatient (REF) | payer MEDICARE, SELFPAY ==
[2023-03-03 16:17] LABS: BUN 20 mg/dL (7-18); CREATININE 0.9 mg/dL (0.55-1.02); Calcium 9.5 mg/dL (8.5-10.1); Chloride 105 mmol/L (98-107); Estimated GFR 62.26 (mL/min/1.73m2); Glucose 112 mg/dL (74-106); Potassium 4.9 mmol/L (3.5-5.1); Sodium 141 mmol/L (136-145)
== END 2023-03-03 16:04 | disposition home or self-care (01) ==
LOC: NCHCN 16:03
PROVIDERS: PCP Family Medicine; Visit Provider Family Medicine
DX: Z00.00 Encounter for general adult medical examination without abnormal findings (principal); R60.0 Localized edema
CPT/HCPCS: 80048

== ENCOUNTER → 2023-04-06 01:56 | Outpatient (CLI) | payer MEDICARE, SELFPAY ==
--- NOTE | 2023-04-06 | DI.MAMMO_ITS ---
Exam(s) MAMMO SCREENING EXAM: MAMMO SCREENING CLINICAL HISTORY: SCREENING Z12.31 TECHNIQUE: Bilateral full field digital CC and MLO mammographic images were obtained with 3D tomosyn thesis and utilizing computer aided detection (CAD). COMPARISON: Available for comparison. FINDINGS: Masses/Architectural Distortion: None seen. Microcalcifications: No suspicious pleomorphic-type are seen. Skin Thickening/Nipple Retraction: None. IMPRESSION: 1. No significant interval change with no specific features of malignancy noted. 2. Unless there is more urgent need, screening mammography is recommended, as per [employer] guidelines. BI-RADS Category 1 - Negative Breast Density - Category B - Scattered areas of fibroglandular density Breast density category C or D implies that the patient has dense breast tissue. Dense breast tissue is very common and is not abnormal but dense breast tissue can make it harder to find cancer on a ma mmogram. Also, dense breast tissue may increase their breast cancer risk. This information about the result of the mammogram report was provided to the patient to raise their awareness. Use this report when you speak with the patient about their risks for breast cancer, which includes their family hist ory. At that time, you may recommend for more screening tests (Ultrasound or MRI) as they might be us eful based on their risk. A negative radiographic report should not delay biopsy if a dominant or clinically suspicious mass is present. Up to ten percent of cancers are not identified on mammography. A negative report may reinforce clinical impression. Adenosis and dense breasts may obscure an underlying neoplasm. False positive reports average 6 to 10%. Patient will receive a letter notifying them of these results.
== END ==
PROVIDERS: PCP Family Medicine; Visit Provider Family Medicine
DX: Z12.31 Encounter for screening mammogram for malignant neoplasm of breast (principal)
CPT/HCPCS: 77063; 77067

== ENCOUNTER 2024-03-22 15:16 | Outpatient (CLI) | payer MEDICARE, SELFPAY ==
--- NOTE | 2024-03-22 13:00 | DI.RAD_ITS ---
Exam(s) XR SHOULDER RT COMPLETE 2+V EXAM: XR SHOULDER RT COMPLETE 2+V CLINICAL HISTORY: RIGHT SHOULDER PAIN. TECHNIQUE: 2D digital imaging was performed. Five views. COMPARISON: CR XR CLAVICLE RT from 07/29/2022 FINDINGS: BONES: No acute fracture is present. No bony destructive lesion is seen. JOINTS: No dislocation present. Spurring at the AC joint and undersurface of acromion. Humeral head is high riding, articulating with the undersurface of the acromion. There is spurring at the greate r tuberosity is well as margin of the humeral head. Mild glenohumeral joint space narrowing and mild spurring at the glenoid. SOFT TISSUE: Normal. IMPRESSION: Findings consistent with chronic rotator cuff tear. Degenerative changes at the AC joint and humeral head. DATA REPOSITORY: RADIATION DOSE DELIVERED:
== END 2024-03-22 15:17 | disposition home or self-care (01) ==
LOC: DIORS 15:17
PROVIDERS: PCP Family Medicine; Referring Provider Family Medicine; Visit Provider Student in an Organized Health Care Education/Training Program
DX: M12.811 Other specific arthropathies, not elsewhere classified, right shoulder
CPT/HCPCS: 20610; 99203; J1010; 73030

== ENCOUNTER 2024-04-08 00:17 | Outpatient (CLI) | payer MEDICARE, SELFPAY ==
--- NOTE | 2024-04-08 10:40 | DI.MAMMO_ITS ---
Exam(s) MAMMO SCREENING EXAM: MAMMO SCREENING CLINICAL HISTORY: SCREENING, Z12.31 TECHNIQUE: Bilateral full field digital CC and MLO mammographic images were obtained with 3D tomosyn thesis and utilizing computer aided detection (CAD). COMPARISON: Available for comparison. FINDINGS: Masses/Architectural Distortion: None seen. Microcalcifications: No suspicious pleomorphic-type are seen. Skin Thickening/Nipple Retraction: None. IMPRESSION: 1. No significant interval change with no specific features of malignancy noted. 2. Unless there is more urgent need, screening mammography is recommended, as per [employer] guidelines. BI-RADS Category 1 - Negative Breast Density - Category B - Scattered areas of fibroglandular density Breast density category C or D implies that the patient has dense breast tissue. Dense breast tissue is very common and is not abnormal but dense breast tissue can make it harder to find cancer on a ma mmogram. Also, dense breast tissue may increase their breast cancer risk. This information about the result of the mammogram report was provided to the patient to raise their awareness. Use this report when you speak with the patient about their risks for breast cancer, which includes their family hist ory. At that time, you may recommend for more screening tests (Ultrasound or MRI) as they might be us eful based on their risk. A negative radiographic report should not delay biopsy if a dominant or clinically suspicious mass is present. Up to ten percent of cancers are not identified on mammography. A negative report may reinforce clinical impression. Adenosis and dense breasts may obscure an underlying neoplasm. False positive reports average 6 to 10%. Patient will receive a letter notifying them of these results.
== END 2024-04-08 00:37 ==
LOC: DI 00:18
PROVIDERS: PCP Family Medicine; Visit Provider Family Medicine
DX: Z12.31 Encounter for screening mammogram for malignant neoplasm of breast (principal); R92.323 Mammographic fibroglandular density, bilateral breasts
CPT/HCPCS: 77063; 77067

== ENCOUNTER → 2025-04-20 13:13 | Outpatient (BNVA) | payer MEDICARE, SELFPAY | PROVIDERS: PCP Family Medicine; Referring Provider Family Medicine; Visit Provider Surgery | DX: R29.898 Other symptoms and signs involving the musculoskeletal system (principal) | CPT/HCPCS: 99213 ==